=== PATIENT | female | born 1965 | race Caucasian/White ===

== ENCOUNTER 2017-07-17 13:43 | Observation (INO) | payer OTHER ==
[2017-07-17] MEDS ORDERED: NS 1,000 ML IV ONE (14:11)
[2017-07-17] MEDS ORDERED: HYDROmorphONE/DILAUDID 1 MG/ML INJ IVP ONE (14:11)
[2017-07-17] MEDS ORDERED: ONDANSETRON 4 MG/2 ML VIAL IVP ONE ×2 (14:11→17:34)
--- NOTE | 2017-07-17 14:13 | EDPHY ---
H & P Stated Complaint: nausea/vomiting and diarrhea Time Seen by Provider: 07/17/17 14:10 HPI/ROS: CHIEF COMPLAINT: Vomiting and diarrhea HISTORY OF PRESENT ILLNESS: The patient is a 52-year-old female who comes to the emergency department by EMS complaining of nausea vomiting diarrhea she states that she ate Chipotle 2 days ago. Yesterday she began having diarrhea nonbloody. No fever. She has had also some abdominal cramping. Today she vomited twice. Nonbloody. She denies chest pain or shortness of breath. No focal tenderness. She was given a L of fluids by EMS and Zofran. REVIEW OF SYSTEMS: Constitutional: denies: chills, fever, recent illness, recent injury EENTM: denies: blurred vision, double vision, nose congestion Respiratory: denies: cough, shortness of breath Cardiac: denies: chest pain, irregular heart rate, lightheadedness, palpitations Gastrointestinal/Abdominal: See HPI Genitourinary: denies: dysuria, frequency, hematuria, pain Musculoskeletal: denies: joint pain, muscle pain Skin: denies: lesions, rash, jaundice, bruising Neurological: denies: headache, numbness, paresthesia, tingling, dizziness, weakness Hematologic/Lymphatic: denies: blood clots, easy bleeding, easy bruising Immunologic/allergic: denies: HIV/AIDS, transplant EXAM: GENERAL: Dry mucous membranes, fatigued HEAD: Atraumatic, normocephalic. EYES: Pupils equal round and reactive to light, extraocular movements intact, sclera anicteric, conjunctiva are normal. ENT: TMs normal, nares patent, oropharynx clear without exudates. Dry lips and mucous membranes. NECK: Normal range of motion, supple without lymphadenopathy or JVD. LUNGS: Breath sounds clear to auscultation bilaterally and equal. No wheezes rales or rhonchi. HEART: Regular rate and rhythm without murmurs, rubs or gallops. ABDOMEN: Soft, nontender, normoactive bowel sounds. No guarding, no rebound. No masses appreciated. BACK: No CVA tenderness, no spinal tenderness, step-offs or deformities EXTREMITIES: Normal range of motion, no pitting or edema. No clubbing or cyanosis. NEUROLOGICAL: Cranial nerves II through XII grossly intact. Normal speech, normal gait. 5/5 strength, normal movement in all extremities, normal sensation PSYCH: Normal mood, normal affect. SKIN: Warm, dry, normal turgor, no visible rashes or lesions. Source: Patient Exam Limitations: No limitations - Personal History LMP (Females 10-55): Post Menopausal Current Tetanus/Diphtheria Vaccine: Unsure Current Tetanus Diphtheria and Acellular Pertussis (TDAP): Unsure - Medical/Surgical History Hx Asthma: No Hx Chronic Respiratory Disease: No Hx Diabetes: No Hx Cardiac Disease: No Hx Renal Disease: No Hx Cirrhosis: No Hx Alcoholism: No Hx HIV/AIDS: No Hx Splenectomy or Spleen Trauma: No Other PMH: spleenectomy as teen. seizure disorder. last seizure was at age 22 and now has "cosme days" "Seizure meds do not work." - Family History Significant Family History: No pertinent family hx - Social History Smoking Status: Never smoked Alcohol Use: Sober Constitutional: Initial Vital Signs Temperature (C) 36.6 C 07/17/17 14:03 Heart Rate 65 07/17/17 14:03 Respiratory Rate 16 07/17/17 14:03 Blood Pressure 127/77 H 07/17/17 14:03 O2 Sat (%) 98 07/17/17 14:03 O2 Delivery Mode Room Air O2 (L/minute) 1 Allergies/Adverse Reactions: erythromycin base Allergy (Verified 07/17/17 21:34) Anaphylaxis Home Medications: Medication Instructions Recorded Calcium Carbonate [Oyster Shell 500 mg PO HS 07/17/17 Calcium 500 mg (*)] Herbals/Supplements -Info Only 1 ea PO HS 07/17/17 Metoclopramide [Reglan 10 mg tab 10 mg PO BID PRN 7 Days tab 07/17/17 (RX)] Multivitamins [Multivitamin (*)] 1 each PO HS 07/17/17 oxyCODONE HCL/ACETAMINOPHEN 1 - 2 each PO Q4 PRN #20 tablet 07/18/17 [Percocet 5-325 mg Tablet] Medical Decision Making - Diagnostics Imaging: Discussed imaging studies w/ watch dial maker Radiologist ED Course/Re-evaluation: 2:50 p.m. we discussed the patient's lab work. She has not been sexually active in several years and is postmenopausal. This is likely a false positive. I will add a beta quantitative for further evaluation. Her abdominal pain is much better. She no tenderness on exam. Her nausea is resolved after break. 4:00 p.m. the patient is doing much better. Her abdominal Exam is benign. 5:45 p.m. the patient has been hydrated. She is tolerating p. o.. She has been to the bathroom and is urinating. She is ambulating without difficulty. She has called a friend and is eager to go home. I will prescribe her Reglan to take as needed. Discussed follow-up and indications for returning. We discussed follow-up for repeat testing of her slightly elevated beta HCG. I suspect that this is part of her hormonal fluctuations with menopause but advised follow-up for repeat testing and consultation by OBGYN. 7:30 p.m. the patient is having a return of some of her pain. I will order a CT scan. I did discuss this with Dr. Bárbara Phan who agrees. 9:00 p.m. the patient may have appendicitis. On repeat abdominal exams she does have tenderness in bilateral lower quadrants. No rebound or guarding. I discussed the case with Dr. Mason who will consult. Differential Diagnosis: Partial list of the Differential diagnosis considered include but were not limited to; gastritis, food poisoning, dehydration and although unlikely based on the history and physical exam, I also considered appendicitis, diverticulitis , biliary disease, peptic ulcer disease, , ovarian cyst, tumor. I discussed these differential diagnoses and the plan with the patient as well as the usual and expected course. The patient understands that the diagnosis is provisional and that in medicine we are not always correct and that further workup is often warranted. Usual and customary warnings were given. All of the patient's questions were answered. The patient was instructed to return to the emergency department should the symptoms at all worsen or return, otherwise to followup with the physician as we discussed. - Data Points Laboratory Results: Laboratory Results 07/17/17 13:50 07/17/17 13:50 Medications Given: Discontinued Medications Bupivacaine HCl (Sensorcaine 0.25% Sdv) Confirm Administered Dose 30 ml .ROUTE .STK-MED ONE Stop: 07/17/17 22:05 Last Admin: 07/17/17 22:30 Dose: 13 ml Epinephrine HCl (Epinephrine) Confirm Administered Dose 1 mg .ROUTE .STK-MED ONE Stop: 07/17/17 22:05 Last Admin: 07/17/17 22:30 Dose: 1 mg Ertapenem (Invanz) 1 gm IVP ONCE ONE PRN Reason: Protocol Stop: 07/18/17 09:28 Last Admin: 07/18/17 08:39 Dose: 1 gm Hydromorphone HCl (Dilaudid) 0.5 mg IVP EDNOW ONE Stop: 07/17/17 14:12 Last Admin: 07/17/17 14:36 Dose: 0.5 mg Sodium Chloride (Ns) 1,000 mls @ 0 mls/hr IV EDNOW ONE; Wide Open PRN Reason: Protocol Stop: 07/17/17 14:12 Last Admin: 07/17/17 14:33 Dose: 1,000 mls Piperacillin/Tazobactam/Dextrose (Zosyn 3.375 Gm (Premix)) 50 mls @ 100 mls/hr IV EDNOW ONE PRN Reason: Protocol Stop: 07/17/17 21:30 Last Admin: 07/17/17 21:45 Dose: 50 mls Lactated Ringer's (Lr) 1,000 mls @ 0 mls/hr IV ONCE ONE PRN Reason: KVO Stop: 07/17/17 22:07 Last Admin: 07/17/17 22:20 Dose: 1,000 mls Potassium Chloride/Dextrose/Sod Cl (D5w 1/2 Ns W/ 20 Kcl/L) 1,000 mls @ 75 mls/ hr IV CONT LIZETH Stop: 01/13/18 23:29 Last Admin: 07/18/17 00:31 Dose: 1,000 mls Lactated Ringer's (Lr) 1,000 mls @ 0 mls/hr IV ONCE ONE PRN Reason: Wide Open Stop: 07/18/17 07:01 Last Admin: 07/18/17 06:38 Dose: 1,000 mls Ketorolac Tromethamine (Toradol) 15 mg IVP Q6HRS LIZETH Stop: 07/23/17 00:00 Last Admin: 07/18/17 08:36 Dose: 15 mg Metoclopramide HCl (Reglan Injection) 10 mg IVP EDNOW ONE Stop: 07/17/17 14:30 Last Admin: 07/17/17 14:32 Dose: 10 mg Metoclopramide HCl (Reglan Injection) 10 mg IVP EDNOW ONE Stop: 07/17/17 19:41 Last Admin: 07/17/17 19:49 Dose: 10 mg Ondansetron HCl (Zofran) 4 mg IVP EDNOW ONE Stop: 07/17/17 14:12 Last Admin: 07/17/17 14:37 Dose: Not Given Ondansetron HCl (Zofran) 4 mg IVP EDNOW ONE Stop: 07/17/17 17:35 Last Admin: 07/17/17 17:35 Dose: 4 mg Pneumococcal Polyvalent Vaccine (Pneumovax 23) 0.5 ml IM .ONCE ONE Stop: 07/18/17 09:02 Last Admin: 07/18/17 10:44 Dose: 0.5 ml Departure - Departure Disposition: [facility] Inpatient Acute Clinical Impression: Appendicitis Qualifiers: Appendicitis type: acute appendicitis Acute appendicitis type: with localized peritonitis Qualified Code(s): K35.3 - Acute appendicitis with localized peritonitis Condition: Good
[2017-07-17 14:22] LABS: % IMMATURE GRANULYOCYTES 0.3 % (0.0-1.1); ABSOLUTE IMMATURE GRANULOCYTES 0.04 10^3/uL (0.00-0.10); ADD DIFF? NO; ADD MORPH? NO; ADD SCAN? NO; ATYPICAL LYMPHOCYTE FLAG 10 (0-99); FRAGMENT RBC FLAG 0 (0-99); HEMOGLOBIN 15.5 g/dL (12.6-16.3); LEFT SHIFT FLG 0 (0-99); LIPEMIA HEMOLYSIS FLAG 90 (0-99); MEAN CELL HEMOGLOBIN 32.4 pg (27.9-34.1); MEAN CELL HEMOGLOBIN CONCENTR. 35.2 g/dL (32.4-36.7); MEAN CELL VOLUME 91.9 fL (81.5-99.8); MEAN PLATELET VOLUME 9.7 fL (8.7-11.7); PLATELET CLUMPS FLAG 0 (0-99); PLATELET COUNT 370 10^3/uL (150-400); RED BLOOD CELL COUNT 4.79 10^6/uL (4.18-5.33); RED CELL DISTRIBUTION WIDTH 13.8 % (11.5-15.2)
[2017-07-17] MEDS ORDERED: METOCLOPRAMIDE 10 MG/2 ML VIAL IVP ONE ×2 (14:29→19:40)
[2017-07-17 14:35] LABS: ALANINE AMINOTRANSFERASE 28 IU/L (9-52); ALBUMIN 4.8 g/dL (3.5-5.0); ALKALINE PHOSPHATASE 83 IU/L (38-126); ANION GAP 22 mEq/L (8-16); ASPARTATE AMINOTRANSFERASE 25 IU/L (14-46); BILIRUBIN,TOTAL 0.5 mg/dL (0.1-1.4); BILIRUBIN-CONJUGATED 0.3 mg/dL (0.0-0.5); BILIRUBIN-UNCONJUGATED 0.2 mg/dL (0.0-1.1); CALCIUM 10.3 mg/dL (8.5-10.4); CARBON DIOXIDE 15 mEq/l (22-31); CHLORIDE 104 mEq/L (97-110); CREATININE 0.7 mg/dL (0.6-1.0); GLOMERULAR FILTRATION RATE > 60; GLUCOSE 145 mg/dL (70-100); POTASSIUM 4.1 mEq/L (3.5-5.2); SODIUM 141 mEq/L (134-144); TOTAL PROTEIN 7.5 g/dL (6.3-8.2)
[2017-07-17] MEDS ORDERED: ONDANSETRON 4 MG/2 ML VIAL ONE ×2 (17:32→22:24)
[2017-07-17 17:40] LABS: COLOR YELLOW; LEUKOCYTE ESTERASE,URINE NEGATIVE (NEGATIVE); NITRITE,URINE NEGATIVE (NEGATIVE)
[2017-07-17 17:47] LABS: BACTERIA TRACE /hpf (NONE SEEN); MUCUS 2+ /lpf (NONE-1+)
[2017-07-17] MEDS ORDERED: IOPAMIDOL (ISOVUE-300) 100 ML BTL ONE (19:56)
[2017-07-17] MEDS ORDERED: PIPERACILLIN/TAZO 3.375 GM/DEX 50 ML IV ONE (21:01)
--- NOTE | 2017-07-17 21:26 | PDGENHP ---
History and Physical - Chief Complaint abdominal pain - History of Present Illness Ate Chipotle Thursday, had some abdominal pain Thursday which persisted until today. Pain got acutely worse today and was now associated with nausea and vomiting. Here in the ED c/o marleny lower abdominal pain, nausea and vomiting. Pain is 7/10 and non radiating, better while lying still, worse with movement. History Information - Allergies/Home Medication List Allergies/Adverse Reactions: azithromycin [From Zithromax] Allergy (Verified 07/17/17 14:09) I have personally reviewed and updated: family history, medical history, social history, surgical history Past Medical History: Epilepsy - Surgical History Additional surgical history: laparotomy for splenectomy in 1981 - Family History Positive for: non-pertinent - Social History Smoking Status: Never smoked Review of Systems Review of Systems: ROS: 10pt was reviewed & negative except for what was stated in HPI & below Physical Exam Physical Exam: Temp Pulse Resp BP Pulse Ox 36.8 C 68 18 108/58 L 95 07/17/17 20:57 07/17/17 20:57 07/17/17 20:57 07/17/17 20:57 07/17/17 20:57 Constitutional: appears nourished, not in pain, uncomfortable Eyes: PERRL, anicteric sclera, EOMI Ears, Nose, Mouth, Throat: moist mucous membranes, hearing normal, ears appear normal, no oral mucosal ulcers Cardiovascular: regular rate and rhythym, no murmur, rub, or gallop, No edema Respiratory: no respiratory distress, no rales or rhonchi, clear to auscultation Gastrointestinal: other (soft, TTP in the RLQ with positive rebound. ) Genitourinary: no bladder fullness, no bladder tenderness Skin: warm, normal color, no rashes or abrasions, no fluctuance, no induration, No mottled Musculoskeletal: full muscle strength, no muscle tenderness, normal joint ROM, no joint effusions Psychiatric: interacting appropriately, not anxious, not encephalopathic, thought process linear Lymph, Heme, Immunologic: no cervical LAD, no supraclavicular LAD Lab Data & Imaging Review 07/17/17 13:50 07/17/17 13:50 WBC 13.98 10^3/uL (3.80-9.50) H 07/17/17 13:50 RBC 4.79 10^6/uL (4.18-5.33) 07/17/17 13:50 Hgb 15.5 g/dL (12.6-16.3) 07/17/17 13:50 Hct 44.0 % (38.0-47.0) 07/17/17 13:50 MCV 91.9 fL (81.5-99.8) 07/17/17 13:50 MCH 32.4 pg (27.9-34.1) 07/17/17 13:50 MCHC 35.2 g/dL (32.4-36.7) 07/17/17 13:50 RDW 13.8 % (11.5-15.2) 07/17/17 13:50 Plt Count 370 10^3/uL (150-400) 07/17/17 13:50 MPV 9.7 fL (8.7-11.7) 07/17/17 13:50 Neut % (Auto) 76.5 % (39.3-74.2) H 07/17/17 13:50 Lymph % (Auto) 18.0 % (15.0-45.0) 07/17/17 13:50 Crane % (Auto) 4.6 % (4.5-13.0) 07/17/17 13:50 Eos % (Auto) 0.1 % (0.6-7.6) L 07/17/17 13:50 Baso % (Auto) 0.5 % (0.3-1.7) 07/17/17 13:50 Nucleat RBC Rel Count 0.0 % (0.0-0.2) 07/17/17 13:50 Absolute Neuts (auto) 10.68 10^3/uL (1.70-6.50) H 07/17/17 13:50 Absolute Lymphs (auto) 2.52 10^3/uL (1.00-3.00) 07/17/17 13:50 Absolute Monos (auto) 0.65 10^3/uL (0.30-0.80) 07/17/17 13:50 Absolute Eos (auto) 0.02 10^3/uL (0.03-0.40) L 07/17/17 13:50 Absolute Basos (auto) 0.07 10^3/uL (0.02-0.10) 07/17/17 13:50 Absolute Nucleated RBC 0.00 10^3/uL (0-0.01) 07/17/17 13:50 Immature Gran % 0.3 % (0.0-1.1) 07/17/17 13:50 Immature Gran # 0.04 10^3/uL (0.00-0.10) 07/17/17 13:50 Sodium 141 mEq/L (134-144) 07/17/17 13:50 Potassium 4.1 mEq/L (3.5-5.2) 07/17/17 13:50 Chloride 104 mEq/L (97-110) 07/17/17 13:50 Carbon Dioxide 15 mEq/l (22-31) L 07/17/17 13:50 Anion Gap 22 mEq/L (8-16) H 07/17/17 13:50 BUN 14 mg/dL (7-23) 07/17/17 13:50 Creatinine 0.7 mg/dL (0.6-1.0) 07/17/17 13:50 Estimated GFR > 60 07/17/17 13:50 Glucose 145 mg/dL (70-100) H 07/17/17 13:50 Calcium 10.3 mg/dL (8.5-10.4) 07/17/17 13:50 Total Bilirubin 0.5 mg/dL (0.1-1.4) 07/17/17 13:50 Conjugated Bilirubin 0.3 mg/dL (0.0-0.5) 07/17/17 13:50 Unconjugated Bilirubin 0.2 mg/dL (0.0-1.1) 07/17/17 13:50 AST 25 IU/L (14-46) 07/17/17 13:50 ALT 28 IU/L (9-52) 07/17/17 13:50 Alkaline Phosphatase 83 IU/L (38-126) 07/17/17 13:50 Total Protein 7.5 g/dL (6.3-8.2) 07/17/17 13:50 Albumin 4.8 g/dL (3.5-5.0) 07/17/17 13:50 Lipase 86 IU/L (23-300) 07/17/17 13:50 Beta HCG, Qual POSITIVE 07/17/17 13:50 Beta HCG, Quant 9.68 mIU/mL (0.00-4.83) H 07/17/17 13:50 Urine Color YELLOW 07/17/17 17:24 Urine Appearance HAZY 07/17/17 17:24 Urine pH 5.0 (5.0-7.5) 07/17/17 17:24 Ur Specific [place] 1.020 (1.002-1.030) 07/17/17 17:24 Urine Protein NEGATIVE (NEGATIVE) 07/17/17 17:24 Urine Ketones 1+ (NEGATIVE) H 07/17/17 17:24 Urine Blood NEGATIVE (NEGATIVE) 07/17/17 17:24 Urine Nitrate NEGATIVE (NEGATIVE) 07/17/17 17:24 Urine Bilirubin NEGATIVE (NEGATIVE) 07/17/17 17:24 Urine Urobilinogen NEGATIVE EU (0.2-1.0) 07/17/17 17:24 Ur Leukocyte Esterase NEGATIVE (NEGATIVE) 07/17/17 17:24 Urine RBC 10-15 /hpf (0-3) H 07/17/17 17:24 Urine WBC 1-3 /hpf (0-3) 07/17/17 17:24 Ur Epithelial Cells TRACE /lpf (NONE-1+) 07/17/17 17:24 Urine Bacteria TRACE /hpf (NONE SEEN) H 07/17/17 17:24 Hyaline Casts 5-15 /lpf (0-1) 07/17/17 17:24 Urine Mucus 2+ /lpf (NONE-1+) H 07/17/17 17:24 Urine Glucose NEGATIVE (NEGATIVE) 07/17/17 17:24 Visualized and Interpreted imaging results: Yes Interpretation: CT: acute, non perforated appendicitis Assessment & Plan Assessment: Acute gastroenteritis (Acute) Plan: 52yo F likely acute appendicitis - To OR for lap appjony, RBA discussed. Patient wishes to proceed with surgery
[2017-07-17] MEDS ORDERED: BUPIVACAINE 0.25% 30 ML SDV ONE (22:04)
[2017-07-17] MEDS ORDERED: LR 1,000 ML IV ONE (22:06)
[2017-07-17] MEDS ORDERED: DEXAMETHASONE 4 MG/ML VIAL ONE (22:24)
[2017-07-17] MEDS ORDERED: SUCCINYLCHOLINE CHLORIDE*ANESTHESIA ONLY*200 MG/10 ML SYR IVP ONE (22:24)
[2017-07-17] MEDS ORDERED: ROCURONIUM 50 MG/5 ML VIAL ONE (22:24)
[2017-07-17] MEDS ORDERED: fentaNYL 100 MCG/2 ML INJ ONE ×2 (22:25)
[2017-07-17] MEDS ORDERED: PROPOFOL 200 MG/20 ML VIAL ONE (22:25)
[2017-07-17] MEDS ORDERED: MEPERIDINE 25 MG/ML SYR IVP PRN (22:45)
[2017-07-17] MEDS ORDERED: HYDROmorphONE/DILAUDID 1 MG/ML INJ IVP PRN (22:45)
[2017-07-17] MEDS ORDERED: NALOXONE HCL 0.4 MG/ML INJ IVP PRN (22:45)
[2017-07-17] MEDS ORDERED: fentaNYL 100 MCG/2 ML INJ IVP PRN (22:45)
--- NOTE | 2017-07-17 22:45 | PDANEPAE ---
ANE History of Present Illness acute apendicitis ANE Past Medical History - Pulmonary History Hx Sleep Apnea: No - Endocrine History Hx Diabetes: No - Neurological & Psychiatric Hx Hx Neurological and Psychiatric Disorders: Yes ANE Review of Systems Review of Systems: ANE Patient History - Allergies Allergies/Adverse Reactions: erythromycin base Allergy (Verified 07/17/17 21:34) Anaphylaxis - Home Medications Home Medications: Calcium Carbonate [Oyster Shell Calcium 500 mg (*)] 500 mg PO HS 07/17/17 [Last Taken 07/16/17] Herbals/Supplements -Info Only 1 ea PO HS 07/17/17 [Last Taken 07/16/17] Multivitamins [Multivitamin (*)] 1 each PO HS 07/17/17 [Last Taken 07/16/17] - NPO status NPO Since - Liquids (Date): 07/17/17 NPO Since - Liquids (Time): 19:00 NPO Since - Solids (Date): 07/17/17 NPO Since - Solids (Time): 11:00 - Smoking Hx Smoking Status: Never smoked ANE Labs/Vital Signs - Labs Result Diagrams: 07/17/17 13:50 07/17/17 13:50 - Vital Signs Blood Pressure: 97/68 Heart Rate: 56 Respiratory Rate: 18 O2 Sat (%): 97 Height: 170.18 cm Weight: 56.699 kg ANE Physical Exam - Airway Neck exam: FROM Mallampati Score: Class 1 Mouth exam: normal dental/mouth exam - Pulmonary Pulmonary: no respiratory distress - Cardiovascular Cardiovascular: regular rate and rhythym - ASA Status ASA Status: III, E ANE Anesthesia Plan Anesthesia Plan: general endotracheal anesthesia Urgent/Emergent Case: María shannon completed preop but documented later for safe timely pt care
[2017-07-17] MEDS ORDERED: ONDANSETRON 4 MG/2 ML VIAL IVP PRN (23:27)
[2017-07-17] MEDS ORDERED: HYDROCODONE/APAP 5/325 TAB PO PRN (23:27)
[2017-07-17] MEDS ORDERED: HYDROmorphone HCL/NS/PF 0.4 MG/2 ML SYR IVP PRN (23:27)
--- NOTE | 2017-07-17 23:27 | POSTOPPROG ---
Post Op Note Date of Operation: 07/17/17 Surgeon: Evan Wolfe Anesthesiologist: Ilana Anesthesia: GET(General Endotracheal) Pre-op Diagnosis: Appendicitis Post-op Diagnosis: same Procedure: lap appy Findings: acute appendicitis Inf/Abcess present in the surg proc area at time of surgery?: No EBL: Minimal Total fluids administered: 1000cc washout Specimen(s): appendix
[2017-07-17] MEDS ORDERED: D5W 1/2 NS W/ 20 KCl/L 1,000 ML IV SCH (23:30)
--- NOTE | 2017-07-17 23:31 | POSTANESTH ---
Post Anesthetic Evaluation Cardiovascular Status: Normal, Stable Respiratory Status: Normal, Stable Level of Consciousness/Mental Status: Can Participate in Eval Pain Control: Adequate, Prn Tx Ordered Nausea/Vomiting Control: Adequate, Prn Tx Ordered Complications Possibly Related to Anesthesia: None Noted
[2017-07-18] MEDS: KETOROLAC 15 MG/1 ML SDV IVP SCH ×4 (00:31→08:36)
[2017-07-18 01:17] VITALS: RESP 14
[2017-07-18] MEDS ORDERED: NS 1,000 ML IV ONE (06:11)
[2017-07-18] MEDS ORDERED: LR 1,000 ML IV ONE (07:00)
[2017-07-18 07:55] VITALS: TEMP 98.4
[2017-07-18 08:24] VITALS: BP 90/54; PULSE 54; O2SAT 97
[2017-07-18] MEDS ORDERED: PNEUMOCOCCAL 0.5ML VACCINE VIAL IM ONE (09:01)
[2017-07-18] MEDS ORDERED: ERTAPENEM 1 GM VIAL IVP ONE (09:27)
--- NOTE | 2017-07-18 09:43 | SOAPPROG ---
SOAP Progress Note Assessment/Plan: Assessment/Plan: 52yo F s/p lap appy - looks good, feels well - Plan for bkfst this AM then home later today. Rx for PErcocet in chart 07/18/17 09:42 Subjective: feels better Objective: Vital Signs Temp Pulse Resp BP Pulse Ox 36.9 C 54 L 14 90/54 L 97 07/18/17 07:51 07/18/17 08:23 07/18/17 04:00 07/18/17 08:23 07/18/17 08:23 07/17/17 07/18/17 07/19/17 05:59 05:59 05:59 Intake Total 2246 Output Total 300 Balance 1946 ICD10 Worksheet Patient Problems: Problems Problem Status Onset Appendicitis Acute
--- NOTE | 2017-07-18 13:47 | ASDISCHSUM ---
Discharge Information Plan Status:Home with No Needs Medically Cleared to Leave: Discharge Date:07/18/2017 11:37 AM CM D/C Disposition:Home, Routine, Self-Care ADT D/C Disposition:Home, Routine, Self-Care Projected Discharge Date:07/18/2017 11:37 AM Transportation at D/C: Discharge Delay Reason: Follow-Up Date:07/18/2017 11:37 AM Discharge Slot: Final Diagnosis: Placement Information Patient Contact Information Contact Name:YAJAIRAROBERTA Relationship:Friend Address: City:[place] Alternate Phone: [facility]/Zip Code:[place] Email: Financial Information Financial Class:Self-Pay Primary Plan Desc:SELF PAY Primary Plan Number: Secondary Plan Desc: Secondary Plan Number: Assessment Information Intervention Information
== END 2017-07-18 11:37 | disposition home or self-care (01) ==
LOC: EDUNIT# → F3E 07-18 00:14
PROVIDERS: ADMIT Surgery; ATTEND Surgery
PROC: 0DTJ4ZZ Resection of Appendix, Percutaneous Endoscopic Approach (ICD-10-PCS; principal; 2017-07-17 22:15)
DX: K35.80 Unspecified acute appendicitis (principal)
CPT/HCPCS: 44970; 74177; 90471; 96361; 96365; 96375; 96376; 99285; G0378; G0009; J0171; J0330; J1100; J1170; J1335; J1885; J2405; J2543; J2704; J2765; J3010; Q9967